=== PATIENT | male | born 1955 | race Caucasian/White ===

== ENCOUNTER 2017-09-15 20:29 | Emergency (ER) | payer BC, SELFPAY ==
[2017-09-15 20:30] VITALS: BP 144/85; PULSE 80; RESP 18; TEMP 36.7; O2SAT 98; BMI 25.0
--- NOTE | 2017-09-15 20:52 | ED.VISSUMM ---
- ER Visit Summary Date of Service: 09/15/17 Chief Complaint: [] Thumb injury noon today History of Present Illness: The patient is a 61 M [] the patient was using a drill to drive a [employer] head screw when that drill bit Yair screw bit struck his left thumb he had some pain but it stopped he went to sleep he woke today and he had some bleeding he came in for evaluation he says it was not a drill bit but rather the [place] head screw bit to drive the screw he has no other complaints his tetanus not up-to-date he has full range of motion of the thumb, he did not suffer any direct puncture but rather it was a blunt trauma Physical Examination: [] Appears to have some trauma at the base of the nail the nail bed is intact there is no subungual hematoma he has full flexion extension of the IP joint and MCP joint the skin is intact Test Results: [] Emergency Department Course and Treatment: [] X-rays obtained he declined pain medicine tetanus is updated X-ray showed no fracture explained the above to him the thumb underwent wound care thumb splint bulky dressing his follow-up Dr. Praneeth Harley orthopedics return for change in symptoms Treatment Plan: [] Disposition: [] Home stable Impression: [] Left thumb blunt injury This note was generated with [employer] dictation software. It may contain incorrect words, spelling, and punctuation that were not noted in review of the chart prior to signing ED Disposition - Plan for ED Patient: Chief Complaint: Laceration Referrals: NOT,DEFINED [Primary Care Provider] -
--- NOTE | 2017-09-15 21:00 | RAD_ITS ---
STUDY: X-RAY - LEFT HAND REASON FOR EXAM: Male, 61 years old. Injury TECHNIQUE: 3 view(s) of the hand. COMPARISON: None. FINDINGS: There is loss of articular cartilage at the radiocarpal joint compartment. There is extensive subcortical cyst formation at the proximal carpal row and ulnar head. There are arthritic changes at the distal radioulnar joint. There is subcortical cyst formation at the second and third metacarpal heads. 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 There is no fracture. RAD/Hand Min 3 Views IMPRESSION: No fracture Extensive arthritic changes at the distal radioulnar/radiocarpal joint compartments, MCP, IP joints, which may be degenerative in nature Electronically Signed: Evin Edwards MD at 21:31 EST Tel , Service support ,
--- NOTE | 2017-09-15 21:40 | ED.DEP ---
ED Disposition - Plan for ED Patient: Chief Complaint: Laceration Instructions: ED Laceration Hand Prescriptions: Naproxen [Naprosyn] 500 mg PO BID PRN #20 tab Referrals: NOT,DEFINED [Primary Care Provider] - Praneeth Harley DO [STAFF PHYSICIAN] -
[2017-09-15] MEDS: Diphth,Pertuss(Acell),Tet Vac 0.5 ML Vial IM (22:07)
== END 2017-09-15 22:24 | disposition home or self-care (01) ==
LOC: ED 21:22
PROVIDERS: Emergency Provider Emergency Medicine
DX: S69.92XA Unspecified injury of left wrist, hand and finger(s), initial encounter (principal); W31.89XA Contact with other specified machinery, initial encounter; Y93.9 Activity, unspecified; Y92.9 Unspecified place or not applicable; Y99.9 Unspecified external cause status; Z23 Encounter for immunization; Z79.899 Other long term (current) drug therapy
CPT/HCPCS: 73130; 90715; 99281

== ENCOUNTER 2020-09-24 12:41 | Emergency (ER) | payer BC, SELFPAY ==
[2020-09-24] VITALS (7 sets, daily range): BP systolic 82–115; BP diastolic 39–72; PULSE 57–71; RESP 11–18; TEMP 36.4; O2SAT 94–98; BMI 24.4
--- NOTE | 2020-09-24 13:31 | RAD_ITS ---
STUDY: X-RAY - LEFT KNEE REASON FOR EXAM: Left knee pain status post left knee/lower leg injury. TECHNIQUE: 3 view(s) of the knee. COMPARISON: None. FINDINGS: Normal visualized distal femur. Normal visualized proximal tibia and fibula. Normal proximal tibiofibular articulation. Normal medial femorotibial compartment. Normal lateral femorotibial compartment. Normal patellofemoral articulation. There is an enthesophyte at the superior pole of the patella. There is soft tissue gas secondary to laceration adjacent to the proximal tibia. RAD/Knee 3 Views IMPRESSION: Soft tissue gas secondary to laceration of the lower leg. No demonstrated fracture. Electronically Signed: Abelino Aguirre MD at 14:40 EDT Tel , Service support ,
[2020-09-24] MEDS: Morphine 4 MG/ML Syringe IM (13:43)
[2020-09-24] MEDS: Ondansetron 4 MG/2 ML Vial IV (13:43)
[2020-09-24] MEDS: Lidocaine 1% (20 ml mdv) 20 ML Vial INFILT (13:44)
--- NOTE | 2020-09-24 14:05 | RAD_ITS ---
STUDY: X-RAY - RIGHT KNEE REASON FOR EXAM: Right knee pain, right knee/lower leg injury. TECHNIQUE: 4 view(s) of the knee. COMPARISON: None. FINDINGS: Normal visualized distal femur. Normal visualized proximal tibia and fibula. Normal proximal tibiofibular articulation. Normal medial femorotibial compartment. Normal lateral femorotibial compartment. There is mild joint space narrowing of the patellofemoral articulation. There is a joint effusion. RAD/Knee 4 or More Views IMPRESSION: Mild patellofemoral arthrosis. Joint effusion. No demonstrated fracture. Electronically Signed: Abelino Aguirre MD at 14:39 EDT Tel , Service support ,
--- NOTE | 2020-09-24 15:54 | ED.DCSUM_ITS ---
- ER Visit Summary Date of Service: 09/24/20 Chief Complaint: Fall History of Present Illness: The patient is a 64 M who reports that he was up on a ladder working on a garage door that is 14 feet up. And the ladder slipped and fell forward. He rode the ladder down the ground and he is estimating fell that he fell approximately 7 feet. He denies any blow to the head or loss of consciousness. Is not on anticoagulants. Patient planes of left knee pain is 10 of 10 severity and right knee pain is 1 out of 10 in severity. He denies any neck, back, chest, abdomen, shoulder, wrist, or hip pain. His tetanus is up-to-date. Physical Examination: Vitals: Stable. Afebrile. Neck: No vertebral tenderness. Full ROM without difficulty. Cleared by NEXUS criteria. Back: No vertebral tenderness. General: A&O x 3. NAD. Cardiovascular exam: Regular rate and rhythm, no murmur, rub or gallop. Respiratory exam: Chest nontender. No crepitus. Clear to auscultation bilaterally. No wheezes or stridor. Abdominal exam: Soft, nontender, nondistended, normal bowel sounds. No pain in RUQ or LUQ specifically. No peritoneal signs. Extremity: Mild diffuse palpation over his right knee. Full range of motion fatty difficulty. No obvious deformity. He has moderate diffuse tenderness palpation over his left knee. His extensor mechanism is intact. He is a 3 cm laceration over the tibial tuberosity. There is no active bleeding. He is neurovascular intact distal to this. Test Results: Clinical Impression(s) from Imaging Studies Knee X-Ray 09/24/20 13:31 IMPRESSION: Soft tissue gas secondary to laceration of the lower leg. No demonstrated fracture. Electronically Signed: Abelino Aguirre MD at 14:40 EDT Tel , Service support , Knee X-Ray 09/24/20 14:05 IMPRESSION: Mild patellofemoral arthrosis. Joint effusion. No demonstrated fracture. Electronically Signed: Abelino Aguirre MD at 14:39 EDT Tel , Service support , Emergency Department Course and Treatment: Patient was treated with morphine and Zofran IV. He was given Keflex p.o. He is resting comfortably. Patient had his wound anesthetized and repaired. He tolerated this well. Treatment Plan: Patient has seen Dr. Sangita Boyle in the past. Given the involvement of the periosteum he was discussed with him. He will be discharged instructions to follow-up in 2 days for a wound check. He will be discharged on Ancef. He has crutches to use as needed. He is given [place] for pain. Return to the emergency department for any worsening symptoms. Disposition: To home in improved and stable condition. Impression: 1. Fall. 2. Laceration left knee, 3 cm, repaired. 3. Bilateral knee pain. Procedure note: Wound was cleansed with chlorhexidine soap. Anesthetized with 1% lidocaine without epinephrine. Copiously irrigated with normal saline. Wound was explored there is no foreign material present. The extensor mechanism is intact. The patellar tendon does not appear to be involved. There does not to be appear to be intra-articular into extension. There is involvement of the medial periosteum. It was closed with 5 simple interrupted 4-0 ethilon sutures. The patient tolerated it well. This note was generated with [employer] dictation software. It may contain incorrect words, spelling, and punctuation that were not noted in review of the chart prior to signing ED Disposition - Plan for ED Patient: Instructions: ED Laceration: All Closures Prescriptions: Cephalexin [Keflex] 250 mg PO Q6 #28 capsule Hydrocodone Bitart/Apap 5-325 [[place] 5MG-325MG] 1 tablet PO Q4H PRN PRN 2 Days #10 tablet PRN Reason: Pain Referrals: Saw Garg DO [STAFF PHYSICIAN] - 2 Days for wound check
[2020-09-24] MEDS: Cephalexin 500 MG Capsule PO (16:12)
== END 2020-09-24 16:27 | disposition home or self-care (01) ==
LOC: ED 14:38
PROVIDERS: Emergency Provider Emergency Medicine
DX: S81.012A Laceration without foreign body, left knee, initial encounter (principal); M25.562 Pain in left knee; M25.561 Pain in right knee; W11.XXXA Fall on and from ladder, initial encounter; Y93.9 Activity, unspecified; Y92.9 Unspecified place or not applicable; Y99.9 Unspecified external cause status; Z79.899 Other long term (current) drug therapy
CPT/HCPCS: 12002; 73562; 73564; 96372; 96374; 99285; A4216; J2405

== ENCOUNTER 2020-10-23 11:22 | Emergency (ER) | payer BC, SELFPAY ==
[2020-09-24 12:41] VITALS: BMI 24.4
[2020-10-23 11:23] VITALS: BP 142/93; PULSE 83; RESP 18; TEMP 36.6; O2SAT 98; BMI 24.8
--- NOTE | 2020-10-23 11:43 | ED.VIS.GEN ---
History of Present Illness Chief Complaint: Wound Check Informant: Patient Onset: Yesterday Context: Gradual Onset Timing: Continuous Current Severity: Mild Maximum Severity: Mild Narrative: Patient is a 64-year-old male was otherwise healthy the presents to the emergency department with wound dehiscence. Patient had laceration of his knee that was repaired on September 24. He states he had the sutures removed 2 weeks later. He states that there is an area on the lateral aspect of incision that continues to break open. He states he tried some tape at home but it would not stick. He denies any drainage. He states there was some scant blood from the area. He denies any fevers or chills. He is otherwise been in his normal state of health. Prior similar symptoms: No Recent Illness/Hospitalization: No Past Medical History - Allergies and Home Meds Allergies/Adverse Reactions: Allergies No Known Allergies Allergy (Verified 10/23/20 11:25) Primary Care Physician: Luís German MD [Primary Care Provider] - Prior records reviewed: Yes Past Medical History: None Surgical History: noncontributory Smoking Status: Former smoker Review of Systems General: Denies: Chills, Fever, Sweats Eyes: Denies: Visual changes - bilaterally, Diplopia ENT: Denies: Rhinorrhea, Sore throat Cardiovascular: Denies: Chest pain, Palpitations Respiratory: Denies: Dyspnea, Cough, Dyspnea on exertion Gastrointestinal: Denies: Abdominal pain, Nausea, Vomiting, Diarrhea, Melena, Hematochezia Genitourinary: Denies: Dysuria, Hematuria, Frequency Musculoskeletal: Denies: Back pain, Extremity Pain Skin: Denies: Rash, Wounds Neurological: Denies: Headache, Weakness, Numbness Physical Exam Vital Signs/Narrative: Vital Signs Temp Pulse Resp BP Pulse Ox 10/23/20 11:23 97.9 F 83 18 142/93 H 98 Inital Vital Signs reviewed: Yes General: Well nourished, Well developed, No Acute Distress Head: Normocephalic, Atraumatic Eyes: Perrl, EOMI ENT: Moist mucous membranes, No rhinorrhea Neck: Supple, Nontender Cardiovascular: Regular rate, Regular rhythm, No murmurs Respiratory: No distress, CTA bilaterally, Chest nontender Abdomen: Soft, Nontender, Nondistended, Normal bowel sounds Back: Nontender, Normal Inspection Extremities: No edema, - - Patient has 1 inch of wound dehiscence to the lateral aspect. There is minimal erythema of the edges. There is no purulence. Skin: Normal color, No rash Neurological: Alert, Oriented x3, Cranial nerves II-XII grossly intact, Normal Strength, Normal Sensation Psychological: Normal affect, Normal Mood Diagnostic/Tx/Re-eval - Medical Decision Making Patient is a mild wound dehiscence. I do not feel that primary closure would be appropriate. The wound was cleaned. It was closed with Steri-Strips. I am going to have him stop using the bacitracin as it seems to prevent the wound from closing fully. I will place him on a short burst of Keflex and have him follow-up with the wound center. He is comfortable with this plan of care. Impression 1. Left knee wound dehiscence ED Disposition - Plan for ED Patient: Instructions: ED Post Op Wound Check, General Prescriptions: Cephalexin [Keflex] 500 mg PO Q12 #14 capsule Prescription Printed Referrals: Clinic,Wound [None] -
[2020-10-23 11:48] VITALS: RESP 16
== END 2020-10-23 12:04 | disposition home or self-care (01) ==
LOC: ED 11:55
PROVIDERS: Emergency Provider Emergency Medicine; PCP Family Medicine
DX: T81.33XA Disruption of traumatic injury wound repair, initial encounter (principal); Z87.891 Personal history of nicotine dependence
CPT/HCPCS: 99282